=== PATIENT | female | born 1970 | race Caucasian/White ===

== ENCOUNTER 2016-11-05 19:06 | Emergency (ER) | payer OTHER ==
[2016-11-05 19:18] VITALS: BP 136/76; PULSE 104; TEMP 98.4; BMI 32.5
[2016-11-05] MEDS ORDERED: DIPHTH,PERTUSS(ACELL),TET 0.5 ML DISP.SYRIN IM ONE (21:50)
--- NOTE | 2016-11-05 21:55 | PDOC ---
History of Present Illness - General Chief Complaint: Laceration Stated Complaint: LACERATION Time Seen by Provider: 11/05/16 20:03 History Source: Patient, Family - History of Present Illness Initial Comments: 11/05/16 21:57 Pt. is a 45 y/o female who presents to the ED complaining of cutting her R lower leg. Pt. states that she threw away some broken crystal. The crystal poked through the garbage bag and cut her on her lower leg. Pt. was able to control the bleeding on the way to the emergency room. Denies using blood thinners, weakness, numbness or tingling, or decreased strength of the leg. Pt. does not remember the date of her last tetanus shot. Past History - Travel Traveled outside of the country in the last 30 days: No Close contact w/someone who was outside of country & ill: No - Past Medical History Allergies/Adverse Reactions: Allergies Allergy/AdvReac Type Severity Reaction Status Date / Time Penicillins Allergy Mild Verified 11/05/16 19:18 Home Medications: Ambulatory Orders Ibuprofen [Motrin] 600 mg PO Q6H PRN #18 tablet 10/27/12 Other medical history: Denies - Immunization History Immunization Up to Date: No - Psycho/Social/Smoking Cessation Hx Anxiety: No Suicidal Ideation: No Smoking Status: No Smoking History: Never smoked Have you smoked in the past 12 months: No Number of Cigarettes Smoked Daily: 0 Information on smoking cessation initiated: No Hx Alcohol Use: No Drug/Substance Use Hx: No Substance Use Type: None Review of Systems - Review of Systems Able to Perform ROS?: Yes Is the patient limited Slovak proficient: No Constitutional: No: Chills, Fever, Weakness Integumentary: Yes: Other (5cm flap laceration of R lower posterior leg.). No: Bruising Neurological: No: Numbness, Tingling, Weakness, Unsteady Gait *Physical Exam - Vital Signs Last Vital Signs Temp Pulse Resp BP Pulse Ox 98.4 F 104 H 20 136/76 99 11/05/16 19:14 11/05/16 19:14 11/05/16 19:14 11/05/16 19:14 11/05/16 19:14 - Physical Exam General Appearance: Yes: Nourished, Appropriately Dressed. No: Apparent Distress Extremity: positive: Normal Capillary Refill, Normal Range of Motion. negative : Normal Inspection (5cm irregular flap laceration of the R lower posterior leg) Integumentary: positive: Normal Color, Dry, Warm, Other (5cm irregular flap laceration of the R lower posterior leg) Neurologic: positive: core finisher II-XII NML intact, Fully Oriented, Alert, Normal Mood/ Affect, Normal Response, Motor Strength 5/5 Procedures - Laceration/Wound Repair Right Lower Posterior Distal Leg Wound Length: 2.6 to 5.0 cm Wound Explored: clean, no foreign body present Wound's Depth, Shape: irregular, flap Irrigated w/ Saline: Yes Betadine Prep: Yes Anesthesia: 1% Lidocaine Amount of Anesthetic (ccs): 4 Wound Repaired With: Sutures Suture Size/Type: 4:0, proline Number of Sutures: 5 (simple interrupted) Layer Closure: No Sterile Dressing Applied: Yes Medical Decision Making - Medical Decision Making 11/05/16 22:01 The wound was cleaned with copious amounts of betadine and saline and thoroughly explored. There was no foreign body in the wound. The wound edges were approximated. 4cc's of 1% lidocaine used for anesthesia. 5 simple interrupted sutures were placed. Hemostasis achieved. The wound was dressed with bacitracin and a 4x4. Pt. instructed to return to the ED in 7-10 days to have her stitches removed. Updated tetanus vaccination. Will discharge pt home at this time. All questions were answered and pt conveys understanding of all discharge instructions. Given return protocols for signs of infection or increased pain. *DC/Admit/Observation/Transfer Diagnosis at time of Disposition: Laceration of right lower leg Qualifiers: Encounter type: initial encounter Qualified Code(s): S81.811A - Laceration without foreign body, right lower leg, initial encounter - Discharge Dispostion Disposition: HOME Condition at time of disposition: Improved Admit: No - Patient Instructions Printed Discharge Instructions: DI for Laceration Repair Additional Instructions: Hoy tenas puntadas en la pierna. Mantenga el oswaldo limpia y seca. Cuando ests en casa, baldemar que salga el aire de la herida. Cubrirlo antes de salir de la casa. Ponga la bacitracina en la herida dos veces al da. Mantenga la herida de mojarse, y mantngala cubierta en la ducha con el abrigo del saran. No remoje la herida. Puede gavin motrin o tylenol segn sea necesario para el dolor. Vuelva en 7-10 villegas para tener shyam puntos quitados. Vuelva al departamento de emergencias si tiene sangrado incontrolado, fiebre, escalofros, enrojecimiento o hinchazn en la edil, o si tiene otros signos de infeccin celestino secrecin de mal olor. Print Language: SYRIAN
== END 2016-11-05 22:10 | disposition home or self-care (01) ==
LOC: EDBD → SUPCPDRO 19:06 → JERFT 19:06
PROC: 3E0234Z Introduction of Serum, Toxoid and Vaccine into Muscle, Percutaneous Approach (ICD-10-PCS; principal; 2016-11-05)
PROC: 0HQKXZZ Repair Right Lower Leg Skin, External Approach (ICD-10-PCS; 2016-11-05)
DX: S81.811A Laceration without foreign body, right lower leg, initial encounter (principal); W25.XXXA Contact with sharp glass, initial encounter; Y93.E9 Activity, other interior property and clothing maintenance; Y92.038 Other place in apartment as the place of occurrence of the external cause
CPT/HCPCS: 90715; 99281-25

== ENCOUNTER 2016-11-19 16:26 | Emergency (ER) | payer OTHER ==
[2016-11-19 16:35] VITALS: BP 134/81; PULSE 83; TEMP 98; BMI 34.3
--- NOTE | 2016-11-19 17:00 | PDOC ---
Suture Removal/Wound Check HPI - History of Present Illness Chief Complaint: Suture/Staple Removal(Here) Stated Complaint: SUTURE REMOVAL Time Seen by Provider: 11/19/16 16:46 History Source: Yes: Patient Exam Limitations: Yes: No Limitations Treated at: [facility] Date of Last ED visit: 11/05/16 - Previous ED Treatment Type of procedure performed on last visit: Yes: Laceration Repair Tetanus Immunization: Yes: Up to Date Past History - Past Medical History Allergies/Adverse Reactions: Allergies Penicillins Allergy (Mild, Verified 11/19/16 16:35) - Immunization History Immunizations Up to Date: No - Social History Smoking History: No Smoking Status: Never smoked Number of Ciarettes Per Day: 0 Suture Removal/Wound Check PE - Physical Exam Laceration/Wound Check Symptoms: reports: None Comments: 11/19/16 16:55 5 sutures removed with without incident, there is mild suture irritation that resolved after sutures were removed, chance of scarring described to patient, she verbalized understanding will follow-up as needed. Current Severity Level: None Maximum Severity Level: None Pain Localization: None *Review of Systems - Review of Systems Constitutional: No: Symptoms Reported Integumentary: Yes: Erythema Neurological: No: Symptoms reported, Paresthesia, Tingling, Tremors Hematologic/Lymphatic: No: Symptoms Reported All Other Systems: Reviewed and Negative *DC/Admit/Observation/Transfer Diagnosis at time of Disposition: Visit for suture removal - Discharge Dispostion Disposition: HOME Condition at time of disposition: Good Admit: No - Referrals Referrals: Tariq Alcocer MD [Primary Care Provider] - - Patient Instructions Printed Discharge Instructions: DI for Suture Removal Additional Instructions: Please keep area covered and away from sunlight Chance of scarring, follow-up with any increased redness swelling or signs of infection
== END 2016-11-19 17:05 | disposition home or self-care (01) ==
LOC: JERFT 16:26
DX: Z48.02 Encounter for removal of sutures (principal)
CPT/HCPCS: 99281-25

== ENCOUNTER 2017-02-02 13:37 | Emergency (ER) | payer OTHER ==
[2017-02-02 13:44] VITALS: BP 131/72; PULSE 94; TEMP 98.6; BMI 33.5
[2017-02-02] MEDS ORDERED: DALBAVANCIN HCL 1,500 MG in DEXTROSE 5%-WATER - 500 ML IVPB ONE (14:12)
--- NOTE | 2017-02-02 14:19 | PDOC ---
History of Present Illness - General Chief Complaint: Abscess Boil Stated Complaint: ABSCESS TO RT AXILLA Time Seen by Provider: 02/02/17 13:46 History Source: Patient Exam Limitations: No Limitations - History of Present Illness Initial Comments: 02/02/17 14:19 Her exquisitely painful that started in her right axilla and has developed more in that same axilla, a lesion to her right upper lid, a small one to her left axilla and one to her left labia. States used a disposable razor axillas and then used on her pubis area before she developed these lesions. Patient has had multiple orthopedic surgeries but has never suffered from any abscesses or infected lesions. No one at home suffers from abscesses. Timing/Duration: reports: constant, changing over time, getting worse Severity: Yes: moderate Respiratory Risk Factors: reports: other Past History - Travel Traveled outside of the country in the last 30 days: No Close contact w/someone who was outside of country & ill: No - Past Medical History Allergies/Adverse Reactions: Allergies Allergy/AdvReac Type Severity Reaction Status Date / Time Penicillins Allergy Mild Verified 11/19/16 16:35 Home Medications: Ambulatory Orders Acetaminophen W/ Codeine #3 [Tylenol # 3] 1 combo PO Q4H PRN #14 tablet MDD 6 Sulfamethoxazole/Trimethoprim [Bactrim *Ds*] 1 each PO BID #14 tablet 02/02/17 Other medical history: NONE - Immunization History Immunization Up to Date: No - Psycho/Social/Smoking Cessation Hx Anxiety: No Suicidal Ideation: No Smoking Status: No Smoking History: Never smoked Have you smoked in the past 12 months: No Number of Cigarettes Smoked Daily: 0 Information on smoking cessation initiated: No Hx Alcohol Use: No Drug/Substance Use Hx: No Substance Use Type: None Review of Systems - Review of Systems Able to Perform ROS?: Yes Is the patient limited Nauruan proficient: Yes Constitutional: Yes: Symptoms Reported, See HPI, Malaise. No: Fever HEENTM: Yes: See HPI. No: Symptoms Reported Respiratory: No: Symptoms reported Musculoskeletal: Yes: Symptoms Reported, See HPI Integumentary: Yes: Symptoms Reported, See HPI, Erythema, Lesions, Lumps All Other Systems: Reviewed and Negative *Physical Exam - Vital Signs Last Vital Signs Temp Pulse Resp BP Pulse Ox 98.6 F 94 H 18 131/72 100 02/02/17 13:41 02/02/17 13:41 02/02/17 13:41 02/02/17 13:41 02/02/17 13:41 - Physical Exam General Appearance: Yes: Nourished, Appropriately Dressed, Apparent Distress, Mild Distress HEENT: positive: RIZWANA, Normal ENT Inspection, TMs Normal, Pharynx Normal, Other (right inner upper lid with stye, non-pointing or draining, tender, no conjunctiva redness or drainage, vision is within normal limits) Neck: positive: Supple. negative: Tender, Lymphadenopathy (R), Lymphadenopathy (L) Respiratory/Chest: positive: Lungs Clear, Normal Breath Sounds Gastrointestinal/Abdominal: positive: Soft. negative: Tender Musculoskeletal: positive: Normal Inspection Extremity: positive: Normal Capillary Refill, Normal Range of Motion, Other ( right axilla reveals 2 fluctuant abscesses, inferior approximately 3 cm and pointing, superior approximately 1 cm and pointing. Patient has erythema circumferentially without streaking or obvious lymphadenopathy and axilla. Left axilla has 1 small pinpoint lesion with slight erythema at site. Nonfluctuant. Left labia reveals a 2 cm erythema and tenderness without fluctuance or pointing lesion.) Integumentary: positive: Swelling Neurologic: positive: resident care aide II-XII NML intact, Fully Oriented, Alert, Normal Mood/ Affect, Motor Strength 5/5 Procedures - Incision and Drainage I&D Site: Left: Groin (labia majora, not pointing or fluctuant), Right: Axilla ( 2 different sites, inferior lesion approximately 3 cm and deep with large amount of purulent drainage) Blade Size: 11 Iodinated Packin/ in Complications: none Dressing: Yes Progress Note - Progress Note Progress Note: Multiple skin abscesses, probable related to contaminated raiser. Incision and drainage performed to right axillary lesions 2, wound culture sent. Patient will start on Bactrim and given first dose here, given prescription for Tylenol with codeine as patient refuses Percocet indicating makes her sick. Will return here in 2 days for packing removal and wound check. Medical Decision Making - Medical Decision Making 02/02/17 14:53 *DC/Admit/Observation/Transfer Diagnosis at time of Disposition: Abscess - Discharge Dispostion Disposition: HOME Condition at time of disposition: Stable Admit: No - Patient Instructions Printed Discharge Instructions: DI for Incision and Drainage of a Skin Abscess Additional Instructions: Rest, keep area elevated. Avoid strenuous activity or exercise until wound is healed Use hot soaks to area to bring more blood to the surface and encourage drainage May change dressings as needed to keep clean - trying to avoid removal of packing for 2 days. If packing needs to be changed, return to emergency department or with your followup physician for wound care and evaluation and repacking as needed If packing needs to be removed, then in 2 days, while in the shower remove dressing and quickly pull the packing taken out. Allow water from shower to wash area thoroughly for 2-3 minutes, and pat dry upon exit of shower and replace dressing. Change his dressing daily until the wound is completely healed. May use Tylenol or Motrin for mild pain relief Use stronger medications as directed and prescribed Continue all medications as prescribed Followup with private physician in 2-3 days for wound check Return to emergency Department for worsening swelling, pain, redness, fevers as needed - Post Discharge Activity Work/School Note: Back to Work
[2017-02-02] MEDS ORDERED: SULFAMETHOXAZOLE/TRIMETHOPRIM 800MG/160MG D.S. TABLET PO ONE (14:22)
[2017-02-02] MEDS ORDERED: SULFAMETHOXAZOLE/TRIMETHOPRIM 800MG/160MG D.S. TABLET ONE (14:46)
--- NOTE | 2017-02-04 10:30 | PDOC ---
Patient Follow-up (Call Back) - Post ED Follow - Up Condition at time of discharge: Stable Disposition at time of original discharge: HOME Reason for Call Back: Abnwl. Microbiology (Patient with positive MRSA result on Bactrim, appropriate treatment)
== END 2017-02-02 15:03 | disposition home or self-care (01) ==
LOC: JERFT 13:37
PROC: 0H9BXZZ Drainage of Right Upper Arm Skin, External Approach (ICD-10-PCS; principal; 2017-02-02)
PROC: 3E03329 Introduction of Other Anti-infective into Peripheral Vein, Percutaneous Approach (ICD-10-PCS; 2017-02-02)
DX: L02.412 Cutaneous abscess of left axilla (principal); L02.411 Cutaneous abscess of right axilla; N76.4 Abscess of vulva; Z88.0 Allergy status to penicillin
CPT/HCPCS: 87070; 87186; 87205; 99281-25

== ENCOUNTER 2017-02-04 14:38 | Emergency (ER) | payer OTHER ==
[2017-02-04 14:45] VITALS: BP 100/50; PULSE 87; TEMP 98; BMI 34.3
--- NOTE | 2017-02-04 15:35 | PDOC ---
Suture Removal/Wound Check HPI - History of Present Illness Chief Complaint: Pain Stated Complaint: REVISIT Time Seen by Provider: 02/04/17 15:29 History Source: Yes: Patient Exam Limitations: Yes: No Limitations Treated at: [facility] ED Date of Last ED visit: 11/05/16 - Previous ED Treatment Type of procedure performed on last visit: Yes: I&D of Abscess Past History - Travel Traveled outside of the country in the last 30 days: No (orthopedic surgeries multiple) Close contact w/someone who was outside of country & ill: No - Past Medical History Allergies/Adverse Reactions: Allergies Penicillins Allergy (Mild, Verified 02/04/17 14:45) Home Medications: Ambulatory Orders Acetaminophen W/ Codeine #3 [Tylenol # 3] 1 combo PO Q4H PRN #14 tablet MDD 6 Sulfamethoxazole/Trimethoprim [Bactrim *Ds*] 1 each PO BID #14 tablet 02/02/17 Chlorhexidine Gluconate [Hibiclens For Decolonization -] 1 applic TP DAILY #1 bottle 02/04/17 General: Yes: no pertinent history Surgical History: Yes: Other (orthopedic surgeries) - Immunization History Immunizations Up to Date: No - Social History Smoking History: No Smoking Status: Never smoked Number of Ciarettes Per Day: 0 Suture Removal/Wound Check PE - Physical Exam Laceration/Wound Check Symptoms: reports: None Current Severity Level: None Maximum Severity Level: None Comments: 02/04/17 15:41 Axillary packing removed, revealed some purulent drainage persistent, irrigated and covered with 4 x 4 superior lesion open and draining, expressed additional purulent drainage from that same wound and irrigated and dressed with 4 x 4. *Review of Systems - Review of Systems Able to Perform ROS?: Yes Constitutional: Yes: Symptoms Reported HEENTM: No: Symptoms Reported All Other Systems: Reviewed and Negative Medical Decision Making - Medical Decision Making 02/04/17 15:42 Multiple abscesses noted to be MRSA lesions. Patient is taking Bactrim and appears much improved from 2 days before. We will encourage follow-up with PMD and given phone number for infectious disease specialist for further evaluation. Given a prescription for chlorhexidine soap with instructions to use twice a week for decontamination purpose as well as bleach baths *DC/Admit/Observation/Transfer Diagnosis at time of Disposition: Visit for wound check - Discharge Dispostion Disposition: HOME Condition at time of disposition: Stable Admit: No - Referrals Referrals: Tariq Alcocer MD [Primary Care Provider] - Saundra Roberts MD [Staff Physician] - - Patient Instructions Printed Discharge Instructions: DI for Incision and Drainage of a Skin Abscess Additional Instructions: Mefoxin resistant Staphylococcus aureus is a normal skin bacteria and is mutated to be resistant to penicillin type drugs. The wounds may be draining and there for contagious to other family members. Vigorous handwashing and avoidance of skin contact of draining lesions it is important . All family members Will need to be protected and perform thorough cleaning of linens /towels/clothing. To decontaminate household: Soak in bath; in one half cup of bleach in 1 full tub of water 2 times a week x3 weeks With own scrub Nylon use chlorohexidine soap twice a week to decontaminate skin Clean tub /toilet with bleach wipes after each use Do not use same linens/avoid contact until lesions are healed Followup with private physician/apple thinner Take all of Bactrim as directed May use ibuprofen or Tylenol for pain relief Followup with PMD in one week if no resolution Make appointment with apple thinner for evaluation when possible
== END 2017-02-04 15:51 | disposition home or self-care (01) ==
LOC: JERFT 14:38
DX: Z48.01 Encounter for change or removal of surgical wound dressing (principal); L02.412 Cutaneous abscess of left axilla; L02.411 Cutaneous abscess of right axilla; N76.4 Abscess of vulva; B95.62 Methicillin resistant Staphylococcus aureus infection as the cause of diseases classified elsewhere
CPT/HCPCS: 99281-25

== ENCOUNTER 2017-02-06 18:10 | Emergency (ER) | payer OTHER ==
[2017-02-06 18:17] VITALS: BP 136/83; PULSE 84; TEMP 98.1; BMI 33.1
--- NOTE | 2017-02-06 20:04 | PDOC ---
History of Present Illness - General Chief Complaint: Revisit, Lab Variance Stated Complaint: WOUND CHECK Time Seen by Provider: 02/06/17 18:35 History Source: Patient Exam Limitations: No Limitations - History of Present Illness Initial Comments: 02/06/17 19:59 Patient is a 46-year-old female, no significant medical history currently on Bactrim was diagnosed with MRSA from culture sent on 02/02/2017. Patient here could she states that there was no prescription at pharmacy. Patient states she is now developing a new lesion to the buttock, old chart was reviewed patient with positive MRSA culture. Patient states rash initially started after using a used razor. Past Medical History: Denies. Allergies: No known allergies Medications: Bactrim Family History: Non-contributory Social History: Denies smoking, alcohol use, or IVDU Review of Systems GENERAL/CONSTITUTIONAL: No fever or chills. No weakness. No weight change. HEAD, EYES, EARS, NOSE AND THROAT: No change in vision. No ear pain or discharge. No sore throat. CARDIOVASCULAR: No chest pain or shortness of breath. RESPIRATORY: No cough, wheezing, or hemoptysis. GASTROINTESTINAL: No nausea, vomiting, diarrhea or constipation. No rectal bleeding. GENITOURINARY: No dysuria, frequency, or change in urination. MUSCULOSKELETAL: No joint or muscle swelling or pain. No neck or back pain. SKIN : No rash or easy bruising. Multiple painful lesion to right axilla, no lesion to left buttock HEMATOLOGIC/LYMPHATIC: No anemia, easy bleeding, or history of blood clots. Lymphadenopathy ALLERGIC/IMMUNOLOGIC: No hives or skin allergy. No latex allergy. Physical Exam: GENERAL: The patient is awake, alert, and fully oriented, in no acute distress. HEAD: Normal with no signs of trauma. EYES: Pupils equal, round and reactive to light, extraocular movements intact, sclera anicteric, conjunctiva clear. ENT: Ears normal, nares patent, oropharynx clear without exudates. Moist mucous membranes. No uvula deviation NECK: Normal range of motion, supple without lymphadenopathy, JVD, or masses. LUNGS: Breath sounds equal, clear to auscultation bilaterally. No wheezes, and no crackles. HEART: Regular rate and rhythm, normal S1 and S2 without murmur, rub or gallop. ABDOMEN: Soft, nontender, normoactive bowel sounds. No guarding, no rebound. No masses. No bruising or abrasions MUSCULOSKELETAL: Normal range of motion, no edema. No clubbing or cyanosis. No cords, erythema, or tenderness. No CVA Tenderness with fist. NEUROLOGICAL: Cranial nerves II through XII grossly intact. Normal speech, normal gait. PSYCH: Normal mood, normal affect. SKIN: Multiple non fluctuant erythematous raised painful lesions to right axilla , left buttock, and pubic area. Areas are not cellulitic. Past History - Past Medical History Allergies/Adverse Reactions: Allergies Allergy/AdvReac Type Severity Reaction Status Date / Time Penicillins Allergy Mild Verified 02/06/17 18:11 Home Medications: Ambulatory Orders Acetaminophen W/ Codeine #3 [Tylenol # 3] 1 combo PO Q4H PRN #14 tablet MDD 6 Chlorhexidine Gluconate [Hibiclens For Decolonization -] 1 applic TP DAILY #1 bottle 02/06/17 Mupirocin Cream [Bactroban 2% Cream -] 1 applic TP BID #1 tube 02/06/17 Sulfamethoxazole/Trimethoprim [Bactrim DS -] 1 each PO BID #20 tablet 02/06/17 Other medical history: NONE - Immunization History Immunization Up to Date: No - Psycho/Social/Smoking Cessation Hx Anxiety: No Suicidal Ideation: No Smoking Status: No Smoking History: Never smoked Have you smoked in the past 12 months: No Number of Cigarettes Smoked Daily: 0 Information on smoking cessation initiated: No Hx Alcohol Use: No Drug/Substance Use Hx: No Substance Use Type: None *Physical Exam - Vital Signs Last Vital Signs Temp Pulse Resp BP Pulse Ox 98.1 F 84 18 136/83 100 02/06/17 18:13 02/06/17 18:13 02/06/17 18:13 02/06/17 18:13 02/06/17 18:13 Medical Decision Making - Medical Decision Making 02/06/17 20:02 A/P: Patient here for evaluation of multiple lesions to skin, is MRSA positive was started on Bactrim however patient states she went to pharmacy medication was not sent. Old charts are reviewed, it is documented the patient states she has taken the medication. New prescription sent to continue the Bactrim, Hibiclens and Bactroban ointment to apply to new Wound that are nonfluctuant and not ready to have I&D performed. Patient verbalized understanding will go immediately to pharmacy to mixing picker tender medication, follow-up with I&D patient states she has an appointment on February 22. Will follow-up as instructed. *DC/Admit/Observation/Transfer Diagnosis at time of Disposition: MRSA (methicillin resistant staph aureus) culture positive - Discharge Dispostion Disposition: HOME Condition at time of disposition: Good Admit: No - Prescriptions Prescriptions: Sulfamethoxazole/Trimethoprim [Bactrim DS -] 1 each PO BID #20 tablet Mupirocin Cream [Bactroban 2% Cream -] 1 applic TP BID #1 tube Chlorhexidine Gluconate [Hibiclens For Decolonization -] 1 applic TP DAILY #1 bottle - Referrals Referrals: Tariq Alcocer MD [Primary Care Provider] - - Patient Instructions Printed Discharge Instructions: DI for Methicillin-Resistant Staph Infection ( MRSA) Additional Instructions: Follow-up in the office of infectious disease Please apply cream that I am prescribing to the new lesions. Please call us if prescriptions are not available in the pharmacy. - Post Discharge Activity
== END 2017-02-06 20:22 | disposition home or self-care (01) ==
LOC: JERFT 18:10
DX: A49.02 Methicillin resistant Staphylococcus aureus infection, unspecified site (principal); Z22.322 Carrier or suspected carrier of Methicillin resistant Staphylococcus aureus
CPT/HCPCS: 99281-25